=== PATIENT | male | born 1965 | race African-American/Black ===

== ENCOUNTER 2016-05-26 16:27 | Inpatient (IN) | payer OTHER ==
[2016-05-26 17:17] VITALS: BMI 27.8
--- NOTE | 2016-05-26 17:49 | HP ---
CIWA Score - CIWA Score Nausea/Vomitin-Mild Nausea/No Vomiting Muscle Tremors: 4-Moderate,w/Arms Extend Anxiety: 4-Mod. Anxious/Guarded Agitation: 4-Moderately Restless Paroxysmal Sweats: 1-Minimal Palms Moist Orientation: 0-Oriented Tacttile Disturbances: 0-None Auditory Disturbances: 0-None Visual Disturbances: 2-Mild Sensitivity Headache: 3-Moderate CIWA-Ar Total Score: 19 Admission ROS BHS - HPI Chief Complaint: WITHDRAWAL SX Allergies/Adverse Reactions: Allergies Allergy/AdvReac Type Severity Reaction Status Date / Time No Known Drug Allergies Allergy Verified 03/22/16 00:52 Pork/Porcine Containing Allergy Verified 03/22/16 00:52 Products pork AdvReac Severe Vomiting Uncoded 03/22/16 00:52 History of Present Illness: 50 YEARS OLD MALE WITH LONG HISTORY OF ALCOHOL NICOTINE DEPENDENCE, HAS WITHDRAWAL HYPERTENSION AND HYPERLIPID HAS BIPOLAR II TREATED WITH GEODON IS ADMIITED TO DETOX Exam Limitations: No Limitations - Ebola screening Have you traveled outside of the country in the last 21 days: No (N) Have you had contact with anyone from an Ebola affected area: No Have you been sick,other than usual withdrawal symptoms: No Do you have a fever: No - Review of Systems Constitutional: Chills, Changes in sleep, Weight Stable EENT: reports: Other (READING EYE GLASSES) Respiratory: reports: Cough Cardiac: reports: No Symptoms Reported GI: reports: Nausea, Poor Fluid Intake, Indigestion, Abdominal cramping : reports: No Symptoms Reported Musculoskeletal: reports: No Symptoms Reported Integumentary: reports: No Symptoms Reported Neuro: reports: Tremors Endocrine: reports: No Symptoms Reported Hematology: reports: No Symptoms Reported Psychiatric: reports: Judgement Intact, Orientated x3, Depressed Other Systems: Reviewed and Negative Patient History - Patient Medical History Hx Anemia: No Hx Asthma: No Hx Chronic Obstructive Pulmonary Disease (COPD): No Hx Cancer: No Hx Cardiac Disorders: No Hx Congestive Heart Failure: No Hx Hypertension: No Hx Hypercholesterolemia: Yes (since 2007) Hx Pacemaker: No HX Cerebrovascular Accident: No Hx Seizures: No Hx Dementia: No Hx Diabetes: No Hx Gastrointestinal Disorders: Yes (GERD--ON OMEPRAZOLE 20 MG DAILY) Hx Liver Disease: No Hx Genitourinary Disorders: No Hx Sexually Transmitted Disorders: Yes (syphillis 1980 and treated) Hx Renal Disease (ESRD): No Hx Thyroid Disease: No Hx Human Immunodeficiency Virus (HIV): No Hx Hepatitis C: No Hx Depression: No Hx Suicide Attempt: Yes (OD ON SLEEPING PILLS IN 2006) Hx Bipolar Disorder: Yes (CURRENTLY ON MEDS) Hx Schizophrenia: No - Patient Surgical History Past Surgical History: Yes Hx Neurologic Surgery: No Hx Cataract Extraction: No Hx Cardiac Surgery: No Hx Lung Surgery: No Hx Breast Surgery: No Hx Breast Biopsy: No Hx Abdominal Surgery: No Hx Appendectomy: No Hx Cholecystectomy: No Hx Genitourinary Surgery: No Hx Orthopedic Surgery: Yes (left knee yrs ago ARHROSCOPIC SURGERY AT AGE OF 39 YEARS) Other Surgical History: INGRUINAL LEFT 2016 Anesthesia Reaction: No - PPD History Previous Implant?: Yes Documented Results: Positive w/o proof Implanted On Prior R Admission?: No Results: positive PPD to be Administered?: No - Smoking Cessation Smoking history: Current every day smoker Have you smoked in the past 12 months: Yes Aproximately how many cigarettes per day: 10 Cigars Per Day: 0 Hx Chewing Tobacco Use: No Initiated information on smoking cessation: Yes 'Breaking Loose' booklet given: 05/26/16 - Substance & Tx. History Hx Alcohol Use: Yes Hx Substance Use: Yes Substance Use Type: Alcohol, Cocaine Hx Substance Use Treatment: Yes - Substances Abused Alcohol Route: Oral Frequency: Daily Amount used: 3PINTS VOLKA Age of first use: 11 Date of Last Use: 05/26/16 Family Disease History - Family Disease History Family Disease History: Diabetes: Father, CA: Mother ( CANCER OF STOMACH ) Admission Physical Exam [facility] - Vital Signs Vital Signs: Vital Signs - 24 hr 05/26/16 17:15 Temperature 96.8 F L Pulse Rate 79 Respiratory 18 Rate Blood Pressure 150/91 - Physical General Appearance: Yes: Nourished, Appropriately Dressed, Moderate Distress, Tremorous, Irritable, Sweating, Anxious HEENTM: Yes: Hearing grossly Normal, Normal ENT Inspection, Normocephalic, Normal Voice Respiratory: Yes: Chest Non-Tender, Lungs Clear, Normal Breath Sounds, No Respiratory Distress, No Accessory Muscle Use Neck: Yes: Supple, Trachea in good position Breast: Yes: Breasts Symetrical Cardiology: Yes: Regular Rhythm, Regular Rate, S1, S2 Abdominal: Yes: Non Tender, Soft Genitourinary: Yes: Within Normal Limits Back: Yes: Normal Inspection Musculoskeletal: Yes: full range of Motion, Gait Steady Extremities: Yes: Normal Inspection, Normal Range of Motion, Non-Tender, Tremors Neurological: Yes: Fully Oriented, Alert, Motor Strength 5/5, Normal Response Integumentary: Yes: Warm, Moist Lymphatic: Yes: Within Normal Limits - Diagnostic (1) Alcohol dependence with uncomplicated withdrawal Current Visit: Yes Status: Acute (2) Gastroesophageal reflux disease Current Visit: Yes Status: Acute (3) Hypercholesterolemia Current Visit: Yes Status: Acute (4) Cocaine dependence, uncomplicated Current Visit: Yes Status: Chronic (5) Bipolar II disorder Current Visit: Yes Status: Suspected Comment: RUTH (6) Nicotine dependence Current Visit: No Status: Acute Qualifiers: Nicotine product type: cigarettes Substance use status: in withdrawal Qualified Code(s): F17.213 - Nicotine dependence, cigarettes, with withdrawal (7) Positive PPD, treated Current Visit: Yes Status: Resolved Comment: NEGATIVE CHEST X RAY Cleared for Admission [facility] - Detox or Rehab [facility] Level of Care: Medically Managed Detox Regimen/Protocol: Librium [facility] Breath Alcohol Content Breath Alcohol Content: 0 Urine Drug Screen - Results Drug Screen Negative: No Urine Drug Screen Results: CLIVE-Cocaine
[2016-05-26] MEDS ORDERED: chlordiazePOXIDE HCL 25 MG CAPSULE PO PRN (17:53)
[2016-05-26] MEDS ORDERED: MAG HYDROX/AL HYDROX/SIMETH 30 ML UNIT-DOSE CUP PO PRN (17:53)
[2016-05-26] MEDS ORDERED: MAGNESIUM HYDROX 2400MG/30ML ORAL SUSPENSION 30 ML CUP PO PRN (17:53)
[2016-05-26] MEDS ORDERED: MAGNESIUM CITRATE 300 ML BOTTLE PO PRN (17:53)
[2016-05-26] MEDS ORDERED: MENTHOL/PHENOL 1 EACH UD MM PRN (17:53)
[2016-05-26] MEDS ORDERED: ACETAMINOPHEN 325 MG TABLET (FP) PO PRN (17:53)
[2016-05-26] MEDS ORDERED: hydrOXYzine PAMOATE 50 MG CAPSULE (FP) PO PRN (17:53)
[2016-05-26] MEDS ORDERED: LOPERAMIDE HCL 2 MG CAPSULE PO PRN (17:53)
[2016-05-26] MEDS ORDERED: NICOTINE 14 MG/24 HOURS TOPICAL PATCH TD PRN (17:53)
[2016-05-26] MEDS ORDERED: guaiFENesin/D-METHORPHAN HB 10 ML UNIT-DOSE CUPS PO PRN (17:53)
[2016-05-26] MEDS ORDERED: P-EPHED 60MG/TRIPROLIDI 2.5MG TABLET PO PRN (17:53)
[2016-05-26] MEDS ORDERED: ONDANSETRON *ODT* 4 MG TABLET SL PRN (17:56)
[2016-05-26] MEDS ORDERED: chlordiazePOXIDE HCL 25 MG CAPSULE PO ONE (20:00)
[2016-05-26] MEDS ORDERED: diphenhydrAMINE HCL 50 MG CAPSULE PO PRN (22:00)
[2016-05-26] MEDS: THIAMINE HCL 100 MG TABLET (FP) PO SCH (22:29)
[2016-05-26] MEDS: RANITIDINE HCL 150 MG TABLET (FP) PO SCH (22:29)
[2016-05-26] MEDS: chlordiazePOXIDE HCL 25 MG CAPSULE PO SCH (22:29)
[2016-05-26] MEDS: ATORVASTATIN CA 10 MG TABLET (FP) PO SCH (22:29)
[2016-05-26] MEDS: cloNIDine HCL 0.1 MG TABLET PO SCH (22:29)
[2016-05-26 23:19] LABS: URINE APPEARANCE CLEAR; URINE BILIRUBIN NEGATIVE (NEGATIVE); URINE BLOOD NEGATIVE (NEGATIVE); URINE COLOR YELLOW; URINE GLUCOSE (UA) NEGATIVE (NEGATIVE); URINE KETONE NEGATIVE (NEGATIVE); URINE LEUK ESTERASE NEGATIVE (NEGATIVE); URINE NITRITE NEGATIVE (NEGATIVE); URINE PROTEIN NEGATIVE (NEGATIVE); URINE UROBILINOGEN NEGATIVE E.U./dl (0.2-1.0)
[2016-05-27] MEDS: chlordiazePOXIDE HCL 25 MG CAPSULE PO SCH ×4 (06:03→22:24)
[2016-05-27] MEDS: NICOTINE POLACRILEX 2 MG GUM BUC PRN ×3 (09:04→22:25)
--- NOTE | 2016-05-27 09:34 | CONSULT ---
[facility] Psychiatric Consult - Data Date of interview: 05/27/16 Admission source: [facility] Identifying data: Readmission to [facility] for this 50 y/o AA male seeking detox treatment on for alcohol and cocaine dependence.Patient lives with his common-law of 24 years.He is a father of four,unemployed and supported on SSI benefits. Substance Abuse History: - Smoking Cessation. Smoking history: Current every day smoker. Have you smoked in the past 12 months: Yes. Aproximately how many cigarettes per day: 10. Cigars Per Day: 0. Hx Chewing Tobacco Use: No. Initiated information on smoking cessation: Yes. 'Breaking Loose' booklet given : 05/26/16. - Substance & Tx. History. Hx Alcohol Use: Yes. Hx Substance Use : Yes. Substance Use Type: Alcohol, Cocaine. Hx Substance Use Treatment: Yes. - Substances Abused. Alcohol. Route: Oral. Frequency: Daily. Amount used: 3PINTS VOLKA. Age of first use: 11. Date of Last Use: 05/26/16. Discussed in this session.Patient confirms this pattern of substance use. Medical History: Remarkable for a history of syncopal attack (03/22/16), hypercholesterolemia,sleep apnea,arthritis (left knee),GERD,past treatment for syphilis,arthroscopic surgery on left knee (at age 39) and left inguinal herniorraphy (2015). Psychiatric History: History of multiple psychiatric hospitalizations since the onset of emotional disturbances at age 31 (self-report).Patient indicates that he is known to most institutions in [facility] ([facility], [facility]).Diagnosed initially with Bipolar Disorder and later revised to Schizoaffective Disorder.Mr Harp is maintained on a regimen of celexa 20 mg/day + seroquel 200 mg/hs + geodon 60 mg po bid.He states that he last took his medications about five days ago.However,this patient is already known for his history of non -adherence to [facility] care.Not necessarily reliable.Mr Harp reports that he gets his outpatient psychiatric services at [facility].Noted distant history of two suicide attempts (wrist-cutting 12 years ago/overdose with pills in 2006). Physical/Sexual Abuse/Trauma History: Patient denies history of sexual abuse. Additional Comment: Urine Drug Screen Results: CLIVE-Cocaine.Noted. Mental Status Exam - Mental Status Exam Alert and Oriented to: Time, Place, Person Cognitive Function: Good Patient Appearance: Well Groomed Mood: Nervous, Anxious, Apprehensive Affect: Mood Congruent Patient Behavior: Fatigued, Appropriate, Cooperative Speech Pattern: Clear, Appropriate Voice Loudness: Normal Thought Process: Goal Oriented Thought Disorder: Not Present Hallucinations: Denies Suicidal Ideation: Denies Homicidal Ideation: Denies Insight/Judgement: Poor Sleep: Poorly, Difficulty falling asleep Appetite: Good Muscle strength/Tone: Normal Gait/Station: Normal Psychiatric Findings - Problem List (Doyle 1, 2,3) (1) Alcohol dependence with uncomplicated withdrawal Current Visit: Yes Status: Acute (2) Cocaine dependence, uncomplicated Current Visit: Yes Status: Acute (3) Nicotine dependence Current Visit: Yes Status: Acute Qualifiers: Nicotine product type: cigarettes Substance use status: in withdrawal Qualified Code(s): F17.213 - Nicotine dependence, cigarettes, with withdrawal (4) Syphilis contact, treated Current Visit: No Status: Chronic (5) Arthritis of left knee Current Visit: Yes Status: Chronic (6) Schizoaffective disorder Current Visit: Yes Status: Chronic (7) Sleep apnea Current Visit: Yes Status: Chronic (8) Gastroesophageal reflux disease Current Visit: Yes Status: Acute (9) Hypercholesterolemia Current Visit: Yes Status: Acute (10) Positive PPD, treated Current Visit: Yes Status: Resolved Comment: NEGATIVE CHEST X RAY (11) Syncope Current Visit: No Status: Chronic Comment: Past history of syncopal attack on 03/22/16 at [facility] ([address] [place] [address]). - Initial Treatment Plan Initial Treatment Plan: Psychoeducation.Detoxification.Medications : geodon 20 mg po bid + celexa 20 mg po daily.Seroquel is on hold (caution against oversedation/syncope).Pharmacy claims reviewed.Script for geodon is found but NOT at the dose of 60 mg po bid.Mr Harp has,verbally,authorized this abstract writer to contact [facility]@ [phone].I spoke with the pharmacist :03/28/16 is the most recent pickle pumper from [facility] (it appears that geodon was issued by a different provider).Observation.
[2016-05-27 10:21] LABS: MCH 28.4 pg (25.7-33.7); MCHC 33.1 g/dl (32.0-35.9); MEAN CELL VOLUME 85.9 fl (80-96); MEAN PLT VOLUME 7.7 fl (7.5-11.1); PLATELET COUNT 247 K/MM3 (134-434); WHITE BLOOD COUNT 3.3 K/mm3 (4.0-10.0)
[2016-05-27] MEDS: RANITIDINE HCL 150 MG TABLET (FP) PO SCH ×2 (10:24→22:24)
[2016-05-27] MEDS: cloNIDine HCL 0.1 MG TABLET PO SCH ×2 (10:24→22:24)
[2016-05-27] MEDS: PRENATAL VITAMINS W/ FOLIC ACID TABLET (FP) PO SCH (10:24)
[2016-05-27 10:34] LABS: ALBUMIN 3.6 g/dl (3.4-5.0); ALK PHOS 62 U/L (45-117); ANION GAP 8 (8-16); BILIRUBIN,TOTAL 0.5 mg/dL (0.2-1.0); CALCIUM 8.6 mg/dL (8.5-10.1); CO2 30 mmol/L (21-32); GLUCOSE,RANDOM 94 mg/dL (74-106); SGOT/AST 19 U/L (15-37); SGPT/ALT 16 U/L (12-78); TOT PROT 6.7 g/dl (6.4-8.2)
--- NOTE | 2016-05-27 11:30 | PN ---
S CIWA - CIWA Score Nausea/Vomitin-No Nausea/No Vomiting Muscle Tremors: 4-Moderate,w/Arms Extend Anxiety: 3 Agitation: 4-Moderately Restless Paroxysmal Sweats: 3 Orientation: 0-Oriented Tacttile Disturbances: 0-None Auditory Disturbances: 0-None Visual Disturbances: 0-None Headache: 0-None Present CIWA-Ar Total Score: 14 BHS Progress Note (SOAP) Subjective: SWEATING,ANXIETY,TREMORS,INTERRUPTED SLEEP,RESTLESS Objective: 05/27/16 11:29 Vital Signs - 8 hr 05/27/16 05/27/16 05/27/16 03:41 06:37 09:51 Temperature 96.6 F L 96.7 F L Pulse Rate 64 64 Respiratory 18 18 18 Rate Blood Pressure 110/68 122/81 Laboratory Tests 05/26/16 05/27/16 05/27/16 23:00 07:00 07:00 WBC 3.3 L RBC 4.14 Hgb 11.8 Hct 35.5 MCV 85.9 MCHC 33.1 RDW 14.0 Plt Count 247 MPV 7.7 Sodium 143 Potassium 3.9 Chloride 105 Carbon Dioxide 30 Anion Gap 8 BUN 12 Creatinine 1.0 Creat Clearance w eGFR > 60 Random Glucose 94 Calcium 8.6 Total Bilirubin 0.5 D AST 19 D ALT 16 Alkaline Phosphatase 62 Total Protein 6.7 Albumin 3.6 Urine Color Yellow Urine Appearance Clear Urine pH 5.0 Ur Specific [place] 1.023 Urine Protein Negative Urine Glucose (UA) Negative Urine Ketones Negative Urine Blood Negative Urine Nitrite Negative Urine Bilirubin Negative Urine Urobilinogen Negative Ur Leukocyte Esterase Negative LABS NOTED Assessment: 05/27/16 11:29 WITHDRAWAL SX. Plan: CONTINUE DETOX
--- NOTE | 2016-05-27 17:44 | EKG ---
Test Reason : Blood Pressure : / mmHG Vent. Rate : 070 BPM Atrial Rate : 070 BPM P-R Int : 190 ms QRS Dur : 120 ms QT Int : 400 ms P-R-T Axes : 046 031 060 degrees QTc Int : 432 ms NORMAL SINUS RHYTHM LEFT VENTRICULAR HYPERTROPHY WITH QRS WIDENING ABNORMAL ECG WHEN COMPARED WITH ECG OF 22-MAR-2016 09:46, NO SIGNIFICANT CHANGE WAS FOUND Confirmed by SAYDA HELM MD ([id number]) on 05/27/2016 5:43:30 PM Referred By: Confirmed By:SAYDA HELM MD
[2016-05-27] MEDS: ATORVASTATIN CA 10 MG TABLET (FP) PO SCH (22:24)
[2016-05-27] MEDS: ZIPRASIDONE 20 MG CAPSULE PO SCH (22:24)
[2016-05-27] MEDS: THIAMINE HCL 100 MG TABLET (FP) PO SCH (22:24)
[2016-05-28] MEDS: chlordiazePOXIDE HCL 25 MG CAPSULE PO SCH ×3 (06:03→17:52)
[2016-05-28] MEDS: ZIPRASIDONE 20 MG CAPSULE PO SCH ×2 (10:28→22:25)
[2016-05-28] MEDS: PRENATAL VITAMINS W/ FOLIC ACID TABLET (FP) PO SCH (10:28)
[2016-05-28] MEDS: cloNIDine HCL 0.1 MG TABLET PO SCH ×2 (10:28→22:25)
[2016-05-28] MEDS: CITALOPRAM HYDROBROMIDE 20 MG TABLET (FP) PO SCH (10:28)
[2016-05-28] MEDS: RANITIDINE HCL 150 MG TABLET (FP) PO SCH ×2 (10:29→22:24)
[2016-05-28] MEDS: NICOTINE POLACRILEX 2 MG GUM BUC PRN ×3 (10:29→22:26)
--- NOTE | 2016-05-28 17:53 | PN ---
[facility] CIWA - CIWA Score Nausea/Vomitin-No Nausea/No Vomiting Muscle Tremors: 3 Anxiety: 4-Mod. Anxious/Guarded Agitation: 3 Paroxysmal Sweats: 3 Orientation: 0-Oriented Tacttile Disturbances: 0-None Auditory Disturbances: 0-None Visual Disturbances: 0-None Headache: 0-None Present CIWA-Ar Total Score: 13 S Progress Note (SOAP) Subjective: ANXIETY,TREMORS,SWEATING,INTERRUPTED SLEEP,RESTLESS Objective: 05/28/16 17:52 Vital Signs - 8 hr 05/28/16 05/28/16 13:21 17:31 Temperature 98.1 F 96.5 F L Pulse Rate 76 68 Respiratory 18 18 Rate Blood Pressure 110/68 105/61 Laboratory Last Values WBC 3.3 K/mm3 (4.0-10.0) L 05/27/16 07:00 RBC 4.14 M/mm3 (4.00-5.60) 05/27/16 07:00 Hgb 11.8 GM/dL (11.7-16.9) 05/27/16 07:00 Hct 35.5 % (35.4-49) 05/27/16 07:00 MCV 85.9 fl (80-96) 05/27/16 07:00 MCHC 33.1 g/dl (32.0-35.9) 05/27/16 07:00 RDW 14.0 % (11.9-15.9) 05/27/16 07:00 Plt Count 247 K/MM3 (134-434) 05/27/16 07:00 MPV 7.7 fl (7.5-11.1) 05/27/16 07:00 Sodium 143 mmol/L (136-145) 05/27/16 07:00 Potassium 3.9 mmol/L (3.5-5.1) 05/27/16 07:00 Chloride 105 mmol/L (98-107) 05/27/16 07:00 Carbon Dioxide 30 mmol/L (21-32) 05/27/16 07:00 Anion Gap 8 (8-16) 05/27/16 07:00 BUN 12 mg/dL (7-18) 05/27/16 07:00 Creatinine 1.0 mg/dL (0.7-1.3) 05/27/16 07:00 Creat Clearance w eGFR > 60 (>60) 05/27/16 07:00 Random Glucose 94 mg/dL (74-106) 05/27/16 07:00 Calcium 8.6 mg/dL (8.5-10.1) 05/27/16 07:00 Total Bilirubin 0.5 mg/dL (0.2-1.0) D 05/27/16 07:00 AST 19 U/L (15-37) D 05/27/16 07:00 ALT 16 U/L (12-78) 05/27/16 07:00 Alkaline Phosphatase 62 U/L (45-117) 05/27/16 07:00 Total Protein 6.7 g/dl (6.4-8.2) 05/27/16 07:00 Albumin 3.6 g/dl (3.4-5.0) 05/27/16 07:00 Urine Color Yellow 05/26/16 23:00 Urine Appearance Clear 05/26/16 23:00 Urine pH 5.0 (5.0-8.0) 05/26/16 23:00 Ur Specific [place] 1.023 (1.001-1.035) 05/26/16 23:00 Urine Protein Negative (NEGATIVE) 05/26/16 23:00 Urine Glucose (UA) Negative (NEGATIVE) 05/26/16 23:00 Urine Ketones Negative (NEGATIVE) 05/26/16 23:00 Urine Blood Negative (NEGATIVE) 05/26/16 23:00 Urine Nitrite Negative (NEGATIVE) 05/26/16 23:00 Urine Bilirubin Negative (NEGATIVE) 05/26/16 23:00 Urine Urobilinogen Negative E.U./dl (0.2-1.0) 05/26/16 23:00 Ur Leukocyte Esterase Negative (NEGATIVE) 05/26/16 23:00 RPR Titer Nonreactive (NONREACTIVE) 05/27/16 07:00 LABS NOTED Assessment: 05/28/16 17:52 WITHDRAWAL SX. Plan: CONTINUE DETOX
[2016-05-28] MEDS: chlordiazePOXIDE 5 MG CAPSULE PO SCH (22:24)
[2016-05-28] MEDS: THIAMINE HCL 100 MG TABLET (FP) PO SCH (22:24)
[2016-05-28] MEDS: ATORVASTATIN CA 10 MG TABLET (FP) PO SCH (22:24)
[2016-05-29] MEDS: chlordiazePOXIDE 5 MG CAPSULE PO SCH ×3 (06:04→18:07)
[2016-05-29] MEDS: NICOTINE POLACRILEX 2 MG GUM BUC PRN ×5 (06:05→22:21)
[2016-05-29] MEDS: CITALOPRAM HYDROBROMIDE 20 MG TABLET (FP) PO SCH (10:29)
[2016-05-29] MEDS: RANITIDINE HCL 150 MG TABLET (FP) PO SCH ×2 (10:29→22:18)
[2016-05-29] MEDS: cloNIDine HCL 0.1 MG TABLET PO SCH ×2 (10:29→22:18)
[2016-05-29] MEDS: PRENATAL VITAMINS W/ FOLIC ACID TABLET (FP) PO SCH (10:29)
[2016-05-29] MEDS: ZIPRASIDONE 20 MG CAPSULE PO SCH ×2 (11:10→22:19)
--- NOTE | 2016-05-29 13:03 | PN ---
BHS Progress Note (SOAP) Subjective: SWEATING,INTERRUPTED SLEEP,RESTLESS Objective: 05/29/16 13:03 Vital Signs - 8 hr 05/29/16 05/29/16 07:00 10:09 Temperature 96.7 F L 95.9 F L Pulse Rate 73 75 Respiratory 18 18 Rate Blood Pressure 132/80 128/86 Laboratory Last Values WBC 3.3 K/mm3 (4.0-10.0) L 05/27/16 07:00 RBC 4.14 M/mm3 (4.00-5.60) 05/27/16 07:00 Hgb 11.8 GM/dL (11.7-16.9) 05/27/16 07:00 Hct 35.5 % (35.4-49) 05/27/16 07:00 MCV 85.9 fl (80-96) 05/27/16 07:00 MCHC 33.1 g/dl (32.0-35.9) 05/27/16 07:00 RDW 14.0 % (11.9-15.9) 05/27/16 07:00 Plt Count 247 K/MM3 (134-434) 05/27/16 07:00 MPV 7.7 fl (7.5-11.1) 05/27/16 07:00 Sodium 143 mmol/L (136-145) 05/27/16 07:00 Potassium 3.9 mmol/L (3.5-5.1) 05/27/16 07:00 Chloride 105 mmol/L (98-107) 05/27/16 07:00 Carbon Dioxide 30 mmol/L (21-32) 05/27/16 07:00 Anion Gap 8 (8-16) 05/27/16 07:00 BUN 12 mg/dL (7-18) 05/27/16 07:00 Creatinine 1.0 mg/dL (0.7-1.3) 05/27/16 07:00 Creat Clearance w eGFR > 60 (>60) 05/27/16 07:00 Random Glucose 94 mg/dL (74-106) 05/27/16 07:00 Calcium 8.6 mg/dL (8.5-10.1) 05/27/16 07:00 Total Bilirubin 0.5 mg/dL (0.2-1.0) D 05/27/16 07:00 AST 19 U/L (15-37) D 05/27/16 07:00 ALT 16 U/L (12-78) 05/27/16 07:00 Alkaline Phosphatase 62 U/L (45-117) 05/27/16 07:00 Total Protein 6.7 g/dl (6.4-8.2) 05/27/16 07:00 Albumin 3.6 g/dl (3.4-5.0) 05/27/16 07:00 Urine Color Yellow 05/26/16 23:00 Urine Appearance Clear 05/26/16 23:00 Urine pH 5.0 (5.0-8.0) 05/26/16 23:00 Ur Specific [place] 1.023 (1.001-1.035) 05/26/16 23:00 Urine Protein Negative (NEGATIVE) 05/26/16 23:00 Urine Glucose (UA) Negative (NEGATIVE) 05/26/16 23:00 Urine Ketones Negative (NEGATIVE) 05/26/16 23:00 Urine Blood Negative (NEGATIVE) 05/26/16 23:00 Urine Nitrite Negative (NEGATIVE) 05/26/16 23:00 Urine Bilirubin Negative (NEGATIVE) 05/26/16 23:00 Urine Urobilinogen Negative E.U./dl (0.2-1.0) 05/26/16 23:00 Ur Leukocyte Esterase Negative (NEGATIVE) 05/26/16 23:00 RPR Titer Nonreactive (NONREACTIVE) 05/27/16 07:00 LABS NOTED Assessment: 05/29/16 13:04 WITHDRAWAL SX. Plan: CONTINUE DETOX
[2016-05-29] MEDS: ATORVASTATIN CA 10 MG TABLET (FP) PO SCH (22:18)
[2016-05-29] MEDS: THIAMINE HCL 100 MG TABLET (FP) PO SCH (22:18)
[2016-05-29] MEDS: chlordiazePOXIDE HCL 10 MG CAPSULE PO SCH (22:18)
[2016-05-30] MEDS: chlordiazePOXIDE HCL 10 MG CAPSULE PO SCH (06:00)
[2016-05-30 06:24] VITALS: BP 147/82; PULSE 56; TEMP 97
--- NOTE | 2016-05-30 12:19 | DS ---
[facility] Detox Discharge Summary Admission Date: 05/26/16 Discharge Date: 05/30/16 - History Present History: Alcohol Dependence, Cocaine Dependence Pertinent Past History: GERD Hypercholesterolemia - Physical Exam Results Vital Signs: Vital Signs Temperature 97 F L 05/30/16 06:24 Pulse Rate 56 L 05/30/16 06:24 Respiratory Rate 18 05/30/16 06:24 Blood Pressure 147/82 05/30/16 06:24 O2 Sat by Pulse Oximetry (%) Pertinent Admission Physical Exam Findings: Withdrawal sx. Laboratory Last Values WBC 3.3 K/mm3 (4.0-10.0) L 05/27/16 07:00 RBC 4.14 M/mm3 (4.00-5.60) 05/27/16 07:00 Hgb 11.8 GM/dL (11.7-16.9) 05/27/16 07:00 Hct 35.5 % (35.4-49) 05/27/16 07:00 MCV 85.9 fl (80-96) 05/27/16 07:00 MCHC 33.1 g/dl (32.0-35.9) 05/27/16 07:00 RDW 14.0 % (11.9-15.9) 05/27/16 07:00 Plt Count 247 K/MM3 (134-434) 05/27/16 07:00 MPV 7.7 fl (7.5-11.1) 05/27/16 07:00 Sodium 143 mmol/L (136-145) 05/27/16 07:00 Potassium 3.9 mmol/L (3.5-5.1) 05/27/16 07:00 Chloride 105 mmol/L (98-107) 05/27/16 07:00 Carbon Dioxide 30 mmol/L (21-32) 05/27/16 07:00 Anion Gap 8 (8-16) 05/27/16 07:00 BUN 12 mg/dL (7-18) 05/27/16 07:00 Creatinine 1.0 mg/dL (0.7-1.3) 05/27/16 07:00 Creat Clearance w eGFR > 60 (>60) 05/27/16 07:00 Random Glucose 94 mg/dL (74-106) 05/27/16 07:00 Calcium 8.6 mg/dL (8.5-10.1) 05/27/16 07:00 Total Bilirubin 0.5 mg/dL (0.2-1.0) D 05/27/16 07:00 AST 19 U/L (15-37) D 05/27/16 07:00 ALT 16 U/L (12-78) 05/27/16 07:00 Alkaline Phosphatase 62 U/L (45-117) 05/27/16 07:00 Total Protein 6.7 g/dl (6.4-8.2) 05/27/16 07:00 Albumin 3.6 g/dl (3.4-5.0) 05/27/16 07:00 Urine Color Yellow 05/26/16 23:00 Urine Appearance Clear 05/26/16 23:00 Urine pH 5.0 (5.0-8.0) 05/26/16 23:00 Ur Specific [place] 1.023 (1.001-1.035) 05/26/16 23:00 Urine Protein Negative (NEGATIVE) 05/26/16 23:00 Urine Glucose (UA) Negative (NEGATIVE) 05/26/16 23:00 Urine Ketones Negative (NEGATIVE) 05/26/16 23:00 Urine Blood Negative (NEGATIVE) 05/26/16 23:00 Urine Nitrite Negative (NEGATIVE) 05/26/16 23:00 Urine Bilirubin Negative (NEGATIVE) 05/26/16 23:00 Urine Urobilinogen Negative E.U./dl (0.2-1.0) 05/26/16 23:00 Ur Leukocyte Esterase Negative (NEGATIVE) 05/26/16 23:00 RPR Titer Nonreactive (NONREACTIVE) 05/27/16 07:00 labs noted - Treatment Hospital Course: Detox Protocol Followed, Detoxed Safely, Responded well, Discharged Condition Good, Rehab Referral Accepted - Medication Discharge Medications: Ambulatory Orders Omeprazole [Prilosec (RX)] 20 mg PO DAILY #30 capsule. 03/23/14 Citalopram Hydrobromide [Celexa -] 20 mg PO DAILY #30 tablet 03/24/16 Quetiapine Fumarate [Seroquel -] 200 mg PO HS #30 tab 03/24/16 Simvastatin [Zocor -] 20 mg PO HS #30 tablet 03/24/16 Citalopram Hydrobromide [Celexa -] 20 mg PO DAILY #30 tablet 05/30/16 Ziprasidone [Geodon] 20 mg NR BID #60 capsule 05/30/16 - Diagnosis (1) Alcohol dependence with uncomplicated withdrawal Status: Acute (2) Cocaine dependence, uncomplicated Status: Acute (3) Gastroesophageal reflux disease Status: Acute (4) Hypercholesterolemia Status: Acute (5) Nicotine dependence Status: Acute Qualifiers: Nicotine product type: cigarettes Substance use status: in withdrawal Qualified Code(s): F17.213 - Nicotine dependence, cigarettes, with withdrawal (6) Schizoaffective disorder Status: Chronic - AMA Did Patient Leave Against Medical Advice: No
== END 2016-05-30 09:13 | disposition home or self-care (01) | DRG 774 ==
LOC: YASAS 16:27 → Y3N 19:17
PROVIDERS: ADMIT Internal Medicine; ATTEND Internal Medicine
PROC: HZ2ZZZZ Detoxification Services for Substance Abuse Treatment (ICD-10-PCS; principal; 2016-05-30)
DX: F10.230 Alcohol dependence with withdrawal, uncomplicated (principal); F14.20 Cocaine dependence, uncomplicated; F17.213 Nicotine dependence, cigarettes, with withdrawal; F31.81 Bipolar II disorder; F25.9 Schizoaffective disorder, unspecified; G47.39 Other sleep apnea; M13.862 Other specified arthritis, left knee; R76.11 Nonspecific reaction to tuberculin skin test without active tuberculosis
CPT/HCPCS: 36415; 80053; 81003; 85027; 86593; 93005; 93010